=== PATIENT | male | born 2000 | race Caucasian/White ===

== ENCOUNTER 2022-08-03 22:32 | Emergency (ER) | payer MEDICAID ==
[~2022-08-03] VITALS: Ht 177.8 cm; Wt 96.6 kg
[2022-08-03 23:16] VITALS: BP 138/81
--- NOTE | 2022-08-03 23:20 | NUR ---
PT BIBSELF C/O LOWER BACK PAIN. PT AAOX 4 BREATHING EVENLY AND UNLABORED. PT ATTACHED TO MONITOR AND POX. MD AT BEDSIDE. WILL CONTINUE TO MONITOR.
[2022-08-03] MEDS ORDERED: CYCLOBENZAPRINE 10 MG TABLET PO ONE (23:30)
[2022-08-03] MEDS ORDERED: HYDROCODONE/APAP 5/325MG TABLET PO ONE (23:30)
[2022-08-03] MEDS ORDERED: HYDROCODONE/APAP 5/325MG TABLET ONE (23:35)
[2022-08-03] MEDS ORDERED: CYCLOBENZAPRINE 10 MG TABLET ONE (23:35)
[2022-08-04] MEDS ORDERED: CYCL5TAB PO (00:31)
[2022-08-04] MEDS ORDERED: IBUP-1957 PO (00:31)
[2022-08-04] MEDS ORDERED: HYDR-4209 PO (00:31)
== END 2022-08-04 01:40 | disposition home or self-care (01) ==
LOC: ER 23:27
DX: M62.830 Muscle spasm of back (principal); Z79.899 Other long term (current) drug therapy
CPT/HCPCS: 74150-TC